=== PATIENT | male | born 1960 | race Caucasian/White ===

== ENCOUNTER 2017-08-09 09:34 | Emergency (ER) | payer OTHER ==
[~2017-08-09] VITALS: Ht 172.7 cm; Wt 99.8 kg
[~2017-08-09 09:34] MED LIST: HYDROCODONE-AP1 EAC6 PO
== END 2017-08-09 11:27 | disposition home or self-care (01) ==
LOC: ER 09:34
DX: S51.012A Laceration without foreign body of left elbow, initial encounter (principal); W00.0XXA Fall on same level due to ice and snow, initial encounter; Y93.89 Activity, other specified; Y92.89 Other specified places as the place of occurrence of the external cause; Y99.8 Other external cause status